=== PATIENT | female | born 1990 | race Caucasian/White ===

== ENCOUNTER 2017-09-30 11:51 | Emergency (ER) | payer MEDICAID ==
[2017-09-30] MEDS ORDERED: TDAP ADULT 0.5 ML INJ (BOOSTRIX) IM ONE (12:43)
--- NOTE | 2017-09-30 12:54 | EDPHY ---
H & P Time Seen by Provider: 09/30/17 12:05 HPI/ROS: 27 yo F presents c/o cut her left pointer finger while cutting an onion. Review of systems As per HPI General no fever no chills no weakness HEENT no eye pain no eye discharge. No eye redness, no sore throat Respiratory no cough, no shortness of breath Cardiac no chest pain, no peripheral edema GI no abdominal pain, no diarrhea, no constipation, no nausea, no vomiting no flank pain, no hematuria, no dysuria Musculoskeletal no myalgias, no joint pain Heme no easy bruising, no easy bleeding Endo no polyuria, no polydipsia Skin no rashes, no pruritus Neuro no syncope, no dizziness, no headaches Psych is no suicidal ideation, no homicidal ideation Past Medical/Surgical History: Addiction issues, currently in rehab Social History: History of substance abuse Smoking Status: Heavy smoker Physical Exam: 27-year-old female alert and oriented no acute distress nontoxic appearance Alert and oriented in no acute distress nontoxic appearance, afebrile Atraumatic normocephalic Neck no JVD Lungs clear to auscultation, no respiratory distress Heart regular rate and rhythm Extremities no cyanosis clubbing edema Left hand Left pointer finger, lateral distal aspect with deep skin avulsion, 1 cm by 0.5 cm No tendon involvement, full range of motion at the DIP, PIP good cap refill Constitutional: Initial Vital Signs Temperature (C) 36.7 C 09/30/17 12:01 Heart Rate 64 09/30/17 12:01 Respiratory Rate 16 09/30/17 12:01 Blood Pressure 102/67 09/30/17 12:01 O2 Sat (%) 97 09/30/17 12:01 O2 Delivery Mode Room Air Allergies/Adverse Reactions: tetracycline Allergy (Verified 09/30/17 11:59) Home Medications: Medication Instructions Recorded Gabapentin 09/30/17 Latuda 09/30/17 Mavryit 09/30/17 Seroquel 09/30/17 clonIDINE 09/30/17 Medical Decision Making ED Course/Re-evaluation: Pt seen and evaluated for injury to left index finger while cutting onions. Imp skin avulsion left index finger Plan Control bleeding with anticoagulant Digital block for pain and to allow us to clean wound, provide wound care discharge home return as needed Differential Diagnosis: Differential diagnosis considered but not limited to Laceration, skin avulsion, contusion, fracture - Data Points Medications Given: Discontinued Medications Diphtheria/Tetanus/Acell Pertussis (Boostrix) 0.5 ml IM .ONCE ONE Stop: 09/30/17 12:44 Last Admin: 09/30/17 13:08 Dose: 0.5 ml Departure - Departure Disposition: Home, Routine, Self-Care Clinical Impression: Avulsion of skin of index finger Condition: Good Instructions: Diphtheria/Pertussis/Tetanus Vaccine (By injection), Skin Avulsion (ED) Referrals: LILIANA GARCIAS [Primary Care Provider] - As per Instructions Stand Alone Forms: Work Excuse
[2017-09-30 13:14] VITALS: BP 102/65
== END 2017-09-30 13:13 | disposition home or self-care (01) ==
LOC: CED 11:51
PROC: 3E0T3BZ Introduction of Anesthetic Agent into Peripheral Nerves and Plexi, Percutaneous Approach (ICD-10-PCS; principal; 2017-09-30)
DX: S61.201A Unspecified open wound of left index finger without damage to nail, initial encounter (principal); F17.200 Nicotine dependence, unspecified, uncomplicated; Z23 Encounter for immunization; W45.8XXA Other foreign body or object entering through skin, initial encounter; Y99.8 Other external cause status; Y93.G1 Activity, food preparation and clean up